=== PATIENT | female | born 1950 | race Caucasian/White ===

== ENCOUNTER → 2016-03-27 | Outpatient (CLI) | payer OTHER | LOC: MC.RAD 11:20 | DX: Z12.31 Encounter for screening mammogram for malignant neoplasm of breast (principal) ==

== ENCOUNTER 2016-04-16 13:15 | Outpatient (RCR) | payer OTHER | END 2016-05-07 16:28 | disposition home or self-care (01) | LOC: WSOT 13:15 | DX: M79.644 Pain in right finger(s) (principal); M65.311 Trigger thumb, right thumb ==

== ENCOUNTER 2016-06-17 12:45 | Outpatient (RCR) | payer OTHER | END 2016-06-19 12:56 | disposition home or self-care (01) | LOC: WSOT 12:45 | DX: Z47.89 Encounter for other orthopedic aftercare (principal); M65.311 Trigger thumb, right thumb ==

== ENCOUNTER 2016-07-02 13:30 | Outpatient (RCR) | payer SELFPAY | END 2016-07-08 14:40 | disposition home or self-care (01) | LOC: MKS.ESL.PT 13:30 | DX: G60.8 Other hereditary and idiopathic neuropathies (principal) ==

== ENCOUNTER 2016-07-08 10:15 | Outpatient (RCR) | payer OTHER | END 2016-07-08 14:40 | disposition home or self-care (01) | LOC: MKS.ESL.PT 10:15 | DX: G60.8 Other hereditary and idiopathic neuropathies (principal) ==

== ENCOUNTER → 2017-02-04 | Outpatient (CLI) | payer MEDICARE, BC | LOC: COL.RAD 15:23 | DX: M51.17 Intervertebral disc disorders with radiculopathy, lumbosacral region (principal) ==

== ENCOUNTER → 2017-03-29 | Outpatient (CLI) | payer MEDICARE, BC | LOC: MC.RAD 14:40 | DX: Z12.31 Encounter for screening mammogram for malignant neoplasm of breast (principal) ==